=== PATIENT | male | born 1995 | race Caucasian/White ===

== ENCOUNTER 2024-01-14 15:16 | Emergency (ER) | payer MEDICAID ==
[~2024-01-14] VITALS: Ht 170.2 cm; Wt 75.0 kg
[2024-01-14 15:34] VITALS: TEMP 98.6; O2SAT 99
[2024-01-14] MEDS ORDERED: CEPH500T MT (17:24)
[2024-01-14] MEDS ORDERED: DOXY100C74 MT (17:24)
[2024-01-14 18:02] VITALS: BP 113/64; PULSE 79; RESP 13; O2SAT 99
== END 2024-01-14 18:04 | disposition home or self-care (01) ==
LOC: ER 15:16
DX: L03.113 Cellulitis of right upper limb (principal); Z98.890 Other specified postprocedural states
CPT/HCPCS: 96372; 99283

== ENCOUNTER 2024-04-02 02:37 | Emergency (ER) | payer MEDICAID ==
[~2024-04-02 02:37] MED LIST: CEPH500T MT; DOXY100C74 MT
== END 2024-04-02 04:02 | disposition left against medical advice (07) ==
LOC: ER 02:37
DX: F41.9 Anxiety disorder, unspecified (principal); Z53.21 Procedure and treatment not carried out due to patient leaving prior to being seen by health care provider